=== PATIENT | female | born 1960 | race African-American/Black ===

== ENCOUNTER 2017-10-02 07:59 | Emergency (ER) | payer OTHER ==
[~2017-10-02 07:59] MED LIST: LISI-360 PO; PENI500T PO; TRAM50TA PO
[2017-10-02 08:01] VITALS: BP 188/98; PULSE 78; RESP 18; TEMP 98; O2SAT 97
--- NOTE | 2017-10-02 08:27 | PD ---
HPI Chief Complaint: Headache Time Seen by Provider: 08:23 Travel History International Travel<30 days: No Contact w/Intl Traveler<30days: No Traveled to known affect area: No History of Present Illness HPI 57yo F with PMH of HTN noncompliant with medication presents to the ED with multiple complaints. Pt states that she has not felt well for 2 days, nausea but no vomiting. Pt has pain with eye movement behind her eyes and bilateral frontal headache that is associated with photophobia. Said headache has improved. No pain in eye without eye movement. Denies any fever, chest pain, sob, vomiting, abdominal pain, focal weakness or numbness, trauma, changes in vision. Pt also felt lightheaded when she got up from sitting but did not fall or hit her head. Pt also with a rash for 1.5 weeks that started in left arm and now in right hand and is itchy and she has been scratching it. PFSH Past Medical History Cerebrovascular Accident: No Diabetes: No Diminished Hearing: No Hypertension: Yes Immune Disorder: No Musculoskeletal: Yes (BACK PAIN) Myocardial Infarction: No Renal Failure: No Seizures: No Ulcer: No Influenza Vaccination: No Menopausal: Yes Tubal Ligation: Yes Past Surgical History Surgical History: No Previous Surgery Social History Alcohol Use: Yes (OCCAS) Tobacco Use: Yes (ONE PPD X 20 YEARS) Substance Use: No Allergies-Medications (Allergen,Severity, Reaction): Coded Allergies: No Known Allergies (Verified Adverse Reaction, Unknown, 10/02/17) Reported Meds & Prescriptions Reported Meds & Active Scripts Active No Active Prescriptions or Reported Medications Review of Systems Except as stated in HPI: all other systems reviewed are Neg Physical Exam Narrative GENERAL: 57yo F not in distress. SKIN: LUE: Circular excoriation. Right wrist: +papules. HEAD: Atraumatic. Normocephalic. EYES: Pupils equal and round at 3mm bilaterally. EOMI. Pain with eye movement. ENT: TM wnl bilaterally. NECK: Throat: Clear. No nuchal rigidity. CARDIOVASCULAR: Regular rate and rhythm. No murmur appreciated. RESPIRATORY: No accessory muscle use. Clear to auscultation. Breath sounds equal bilaterally. GASTROINTESTINAL: Abdomen soft, non-tender, nondistended. No rebound tenderness or guarding. MUSCULOSKELETAL: No obvious deformities. No clubbing. No cyanosis. No edema. NEUROLOGICAL: Awake and alert. No obvious cranial nerve deficits. Motor grossly within normal limits. Sensation intact. Normal speech. PSYCHIATRIC: Appropriate mood and affect; insight and judgment normal. Data Data Last Documented VS Vital Signs Date Time Temp Pulse Resp B/P (MAP) Pulse Ox O2 Delivery O2 Flow Rate FiO2 10/02/17 11:11 17 10/02/17 08:42 83 132/79 (96) 84 121/74 (90) 102 131/91 (104) 10/02/17 08:01 98.0 97 Orders Orders Complete Blood Count With Diff (10/02/17 08:23) Basic Metabolic Panel (Bmp) (10/02/17 08:23) Ct Facial Bones W Iv Contrast (10/02/17 ) Electrocardiogram (10/02/17 ) Orthostatic Vital Signs (10/02/17 08:23) Ondansetron Inj (Zofran Inj) (10/02/17 08:30) Ketorolac Inj (Toradol Inj) (10/02/17 08:30) Urinalysis - C+S If Indicated (10/02/17 08:23) Prothrombin Time / Inr (Pt) (10/02/17 08:26) Act Partial Throm Time (Ptt) (10/02/17 08:26) Westergren Sedimentation Rate (10/02/17 08:27) Iohexol 350 Inj (Omnipaque 350 Inj) (10/02/17 10:22) Labs Laboratory Tests Test 10/02/17 08:30 10/02/17 08:35 White Blood Count 4.3 TH/MM3 Red Blood Count 4.22 MIL/MM3 Hemoglobin 13.1 GM/DL Hematocrit 38.6 % Mean Corpuscular Volume 91.4 FL Mean Corpuscular Hemoglobin 30.9 PG Mean Corpuscular Hemoglobin Concent 33.9 % Red Cell Distribution Width 13.0 % Platelet Count 209 TH/MM3 Mean Platelet Volume 10.7 FL Neutrophils (%) (Auto) 45.0 % Lymphocytes (%) (Auto) 42.3 % Monocytes (%) (Auto) 12.0 % Eosinophils (%) (Auto) 0.1 % Basophils (%) (Auto) 0.6 % Neutrophils # (Auto) 1.9 TH/MM3 Lymphocytes # (Auto) 1.8 TH/MM3 Monocytes # (Auto) 0.5 TH/MM3 Eosinophils # (Auto) 0.0 TH/MM3 Basophils # (Auto) 0.0 TH/MM3 CBC Comment DIFF FINAL Differential Comment Erythrocyte Sedimentation Rate 37 mm/hr Prothrombin Time 10.9 SEC Prothromb Time International Ratio 1.1 RATIO Activated Partial Thromboplast Time 26.2 SEC Blood Urea Nitrogen 9 MG/DL Creatinine 0.91 MG/DL Random Glucose 107 MG/DL Calcium Level 8.8 MG/DL Sodium Level 135 MEQ/L Potassium Level 3.9 MEQ/L Chloride Level 104 MEQ/L Carbon Dioxide Level 22.5 MEQ/L Anion Gap 9 MEQ/L Estimat Glomerular Filtration Rate 77 ML/MIN Urine Color YELLOW Urine Turbidity CLEAR Urine pH 5.5 Urine Specific [place] 1.005 Urine Protein 30 mg/dL Urine Glucose (UA) NEG mg/dL Urine Ketones NEG mg/dL Urine Occult Blood LARGE Urine Nitrite NEG Urine Bilirubin NEG Urine Urobilinogen LESS THAN 2.0 MG/DL Urine Leukocyte Esterase NEG Urine RBC 3 /hpf Urine WBC LESS THAN 1 /hpf Urine Squamous Epithelial Cells <1 /hpf Urine Bacteria RARE /hpf Microscopic Urinalysis Comment CULT NOT INDICATED MDM Medical Decision Making Medical Screen Exam Complete: Yes Emergency Medical Condition: Yes Interpretation(s) EKG: NSR 83bpm. LAD. TWI III. No ST segment elevation or depression. Differential Diagnosis Headache: Migraine headache vs. tension headache vs. temporal arteritis vs. orbital cellulitis vs. hypertensive headache vs. URI Lightheadedness: Dehydration vs. UTI vs. electrolyte abnormality vs. arrhythmia Rash: Eczema vs. psoriasis Narrative Course 57yo well appearing female here with multiple complaints. BP is elevated at 188 /98. Pt has history of HTN but said she took 3 months of medication but has not follow up with PMD so has not taken anything for months. She has multiple complaints but the concerning complaint is pain with eye movement. Labs reviewed, no leukocytosis. ESR only 37. BMP unremarkable. UA showed no leukocyte. Culture not indicated. CT facial with contrast negative. Pt given toradol and zofran and headache has resolved. Also pain with eye movement has resolved. Return precautions given. Diagnosis Primary Impression: Headache Qualified Codes: R51 - Headache Additional Impression: Eczema Qualified Codes: L30.9 - Dermatitis, unspecified Patient Instructions: General Instructions Departure Forms: Tests/Procedures Additional Instructions: Please follow up with your primary care physician in 2-3 days. Return to the ED if symptoms worsen. Med/Other Pt SpecificInfo: Prescription(s) given Scripts Acetaminophen (Tylenol) 325 Mg Tab 650 MG PO Q6H Y for PAIN SCALE 1 TO 4, #20 TAB 0 Refills Prov: Abby Chen DO 10/02/17 Triamcinolone Topical (Triamcinolone Topical) 0.1 % Oint 1 APPLIC TOPICAL BID for Inflammation for 10 Days, GM 0 Refills Prov: Abby Chen DO 10/02/17 Disposition: 01 DISCHARGE HOME Condition: Stable Abby Chen DO Oct 02, 2017 08:27
[2017-10-02] MEDS ORDERED: KETOROLAC TROMETHAMINE 30 MG/ML (IVP) VIAL IV PUSH ONE (08:30)
[2017-10-02] MEDS ORDERED: ONDANSETRON HCL 4 MG/2 ML VIAL IV PUSH ONE (08:30)
[2017-10-02 08:42] VITALS: BP_SYST 121; BP_SYST 131; BP_SYST 132; BP_DIAS 74; BP_DIAS 79; BP_DIAS 91
[2017-10-02 09:07] LABS: AUTOMATED NEUTROPHIL # 1.9 TH/MM3 (1.8-7.7); BASOPHIL % 0.6 % (0.0-2.0); EOSINOPHIL % 0.1 % (0.0-4.0); HEMATOCRIT 38.6 % (35.0-46.0); HEMO FLAGS DIFF FINAL; LYMPH % 42.3 % (9.0-44.0); LYMPHOCYTE # 1.8 TH/MM3 (1.0-4.8); MEAN CELL VOLUME 91.4 FL (80.0-100.0); MEAN CORPUSCULAR HEMOGLOBIN 30.9 PG (27.0-34.0); MEAN CORPUSCULAR HGB CONC 33.9 % (32.0-36.0); PLATELET COUNT 209 TH/MM3 (150-450); RED BLOOD COUNT 4.22 MIL/MM3 (4.00-5.30); WHITE BLOOD COUNT 4.3 TH/MM3 (4.0-11.0)
[2017-10-02 09:13] LABS: BACTERIA, URINE RARE /hpf; BLOOD, URINE LARGE (NEG); GLUCOSE,URINE NEG (NEG); KETONE, URINE NEG (NEG); NITRITE,URINE NEG (NEG); PH, URINE 5.5 (5.0-8.5); SQUAMOUS EPITHELIAL CELL URINE <1 /hpf (0-5); URINE COLOR YELLOW (YELLW/STRAW)
[2017-10-02 09:14] LABS: COMMENT (UR) CULT NOT INDICATED; CULTURE IF INDICATED CULT NOT INDICATED
[2017-10-02 09:15] LABS: APTT (PATIENT) 26.2 SEC (24.3-30.1); INTERNATIONAL NORMALIZED RATIO 1.1 RATIO; PROTHROMBIN TIME - PATIENT 10.9 SEC (9.8-11.6)
[2017-10-02 09:29] LABS: BICARBONATE 22.5 MEQ/L (21.0-32.0); POTASSIUM 3.9 MEQ/L (3.5-5.1)
[2017-10-02] MEDS ORDERED: IOHEXOL 350 MG/ML 10 ML VIAL (for RAD DIAG) IVCONTRAST ONE (10:22)
--- NOTE | 2017-10-02 11:07 | RADRPT ---
EXAM DATE/TIME: 10/02/2017 10:20 [facility] COMPARISON: No previous studies available for comparison. INDICATIONS : Headache, painful eye movement IV CONTRAST: 68 cc Omnipaque 350 (iohexol) IV RADIATION DOSE: 51.58 CTDIvol (mGy) MEDICAL HISTORY : Hypertension. SURGICAL HISTORY : None. ENCOUNTER: Initial ACUITY: 2 days PAIN SCALE: 6/10 LOCATION: cranial TECHNIQUE: Volumetric scanning of the facial bones was performed. Using automated exposure control and adjustme nt of the mA and/or kV according to patient size, radiation dose was kept as low as reasonably achiev able to obtain optimal diagnostic quality images. DICOM format image data is available electronicall y for review and comparison. FINDINGS: The examination demonstrates no evidence of intraconal or extraconal mass. The extraocular muscles ar e normal in size. The globes appear normal and symmetric bilaterally. Optic nerves are unremarkable. Coronal reconstructions demonstrate no evidence of mass. The paranasal sinuses are clear with the exc eption of minimal polypoid mucosal disease in the left maxillary sinus.. Visualized intracranial structures are intact and no abnormality is seen in the suprasellar cistern. CONCLUSION: 1. Negative examination of the facial bones Rock Vee MD on October 02, 2017 at 11:01 Board Certified Radiologist. This report was verified electronically.
[2017-10-02 11:11] VITALS: RESP 17
[2017-10-02] MEDS ORDERED: TYLE325T PO (11:22)
[2017-10-02] MEDS ORDERED: TRIAM.1%T TOPICAL (11:22)
--- NOTE | 2017-10-02 18:43 | EKG ---
Date Performed: 10/02/2017 Time Performed: 08:40:45 PTAGE: 57 years EKG: Sinus rhythm NORMAL ECG NO PREVIOUS TRACING DOCTOR: Haris Vazquez Interpretating Date/Time 10/02/2017 18:42:33
== END 2017-10-02 11:35 | disposition home or self-care (01) ==
LOC: NEPC 07:59
DX: R51 Headache (principal); H53.143 Visual discomfort, bilateral; L30.9 Dermatitis, unspecified; I10 Essential (primary) hypertension; F17.200 Nicotine dependence, unspecified, uncomplicated
CPT/HCPCS: 70487; 80048; 81001; 85025; 85610; 85652; 85730; 93005; 96374; 96375; 99285; J1885; J2405; Q9967